=== PATIENT | male | born 1955 | race Hispanic/Latino ===

== ENCOUNTER 2019-05-07 09:17 | Day surgery (SDC) | payer OTHER ==
--- NOTE | 2019-05-07 10:42 | Anesthesia Consultation ---
Anesthesia Consult and Med Hx Date of service: 05/07/19 - Airway Anesthetic Teeth Evaluation: Poor ROM Head & Neck: Adequate Mental/Hyoid Distance: Inadequate Mallampati Class: Class I Intubation Access Assessment: Possibly Difficult - Pulmonary Exam CTA: Yes - Cardiac Exam Cardiac Exam: RRR - Pre-Operative Health Status ASA Pre-Surgery Classification: ASA4 Proposed Anesthetic Plan: MAC - Pulmonary Hx Smoking: No Hx Respiratory Symptoms: No Hx Sleep Apnea: Yes (compliant with CPAP) - Cardiovascular System Hx Hypertension: Yes Hx Heart Attack/AMI: Yes (2016; medical management only) Hx Angina: No Hx Percutaneous Transluminal Coronary Angioplasty (PTCA): No - Central Nervous System CVA: Yes (2016) - Gastrointestinal Hx Gastroesophageal Reflux Disease: No - Endocrine Hx End Stage Renal Disease: Yes (last HD 05/04/19) Hx Liver Disease: No Hx Insulin Dependent Diabetes: Yes - Other Systems Hx Obesity: Yes - Additional Comments Anesthesia Medical History Comments: Last dose ASA 3 days ago; last dose plavix 1 day ago.
--- NOTE | 2019-05-07 10:42 | Anesthesia Day of Surgery ---
Anesthesia Day of Surgery - Day of Surgery Patient Examined: Yes Patient H&P Reviewed: Yes Patient is NPO: Yes
[2019-05-07] MEDS ORDERED: PROPOFOL 200 MG/20 ML VIAL IV ONE ×2 (10:54)
[2019-05-07] MEDS ORDERED: LIDOCAINE MPF (2%) 20 MG/1 ML VIAL 5 ML ONE (11:00)
[2019-05-07] MEDS ORDERED: WATER FOR IRRIG STERILE 250 ML BOTTLE IR ONE (11:00)
[2019-05-07] MEDS ORDERED: SODIUM CHLORIDE 0.9% 1000 ML 1,000 ML IV SCH (11:00)
[2019-05-07] MEDS ORDERED: WATER FOR IRRIG STERILE 1,000 ML BOTTLE ONE (11:02)
--- NOTE | 2019-05-07 11:27 | Discharge Summary ---
Short Stay Discharge Plan Activity: advance as tolerated Weight Bearing Status: Weight Bear as Tolerated Diet: regular Follow up with: [facility] [Primary Care Provider] - 7 Days
--- NOTE | 2019-05-07 11:27 | Operative Report ---
Operative Report Operative Report: Date of procedure: 05/07/2019 Procedure: Colonoscopy with Snare polypectomy and submucosal injection. Attending physician: Dean Emerson M.D. Wind Project Manager: Dean Emerson M.D. Indication: Patient is a 63-year-old male who presents for screening colonoscopy. He has a past history of colon polyps. This colonoscopy serves to evaluate patient so that treatment may be directed based on the findings. Consent: Informed consent was obtained after advising the patient and family regarding nature of this procedure, its indications, potential benefits as well as possible complications including but not limited to bleeding perforation and adverse reaction to medication, infection as well as other cardiopulmonary complications. An informed written and verbal consent was then obtained after due opportunity was provided for questions and answers. Monitoring: Patient was monitored continuously with pulse oximetry and electrocardiographic recordings as well as blood pressure recordings. Vital signs remained stable throughout this procedure with no untoward events. Preoperative assessment: Patient was assessed immediately prior to this procedure for capacity to tolerate monitored anesthesia care and moderate sedation as well as general anesthesia. Patient's ASA classification is 3, Mallampati class is 2, Hyomental distance is 3. Instrument: Olympus video colonoscope. Medications: Propofol given intravenously in divided doses. For details please refer to anesthesia records. Description of procedure: Patient was placed in the left lateral decubitus position after achieving sedation, a digital rectal examination was performed following which the colonoscope was introduced into the anal verge and advanced to the ileocecal valve. There was substantial retained stool seen in the cecum and the surrounding area of the ileocecal valve therefore the cecum was not intubated.. The colonoscope was subsequently withdrawn with careful inspection of all mucosal surfaces. Patient tolerated this procedure well and was subsequently taken to the recovery room. The following findings were noted. Findings: The preparation was poor. The patient had substantial retained stool in sections of the colon. The colon was tortuous. There were no polyps seen in the colon. In the rectum however patient had a 1 cm sessile polyp which was elevated with submucosal injection of saline and removed by snare electrocautery and retrieved. Patient also had internal hemorrhoids seen on a retroflexed view at the anal verge. Impression: Rectal polyp status post submucosal injection and snare polypectomy and retrieval of polyp Substantial retained stool would poor colonoscopic preparation Substantial retained stool in the cecum and in the ileocecal valve area with poor visualization of this area. Internal hemorrhoids Plan: Follow pathology report. High-fiber diet. Repeat colonoscopy in 6-12 months.
[2019-05-07 12:00] VITALS: BP 119/74
--- NOTE | 2019-05-07 15:13 | Post Anesthesia Evaluation ---
- Post Anesthesia Evaluation Patient Participated: Yes Airway Patent: Yes Stable Respiratory Function: Yes Nausea/Vomiting: No Temp > 96.8F: Yes Pain Manageable: Yes Adequeate Hydration: Yes Anesthesia Complications: No Block Receding Appropriately: Not Applicable Patient on Ventilator: No
== END 2019-05-07 12:12 | disposition home or self-care (01) ==
LOC: GIO 09:17
PROVIDERS: ATTEND Internal Medicine Gastroenterology
DX: Z12.11 Encounter for screening for malignant neoplasm of colon (principal); D12.8 Benign neoplasm of rectum; K64.8 Other hemorrhoids; I12.0 Hypertensive chronic kidney disease with stage 5 chronic kidney disease or end stage renal disease; E11.22 Type 2 diabetes mellitus with diabetic chronic kidney disease; N18.6 End stage renal disease; I25.2 Old myocardial infarction; G47.30 Sleep apnea, unspecified; E66.9 Obesity, unspecified; Z99.2 Dependence on renal dialysis; Z86.73 Personal history of transient ischemic attack (TIA), and cerebral infarction without residual deficits; Z79.899 Other long term (current) drug therapy; Z68.34 Body mass index [BMI] 34.0-34.9, adult
CPT/HCPCS: 45381; 45385; 82803; 82962; 88305; J2704

== ENCOUNTER 2019-07-28 12:33 | Outpatient (CLI) | payer OTHER ==
--- NOTE | 2019-07-28 13:54 | Cat Scan Report ---
CT ABDOMEN AND PELVIS WITHOUT CONTRAST HISTORY: PRE TRANSPLANT/OTHER SPECIFIED SPECIAL EXAM COMPARISON: None. TECHNIQUE: Axial CT images were obtained through the abdomen and pelvis without IV contrast. Sagittal and coronal reformatted images. All CT scans at this location are performed using CT dose reduction for ALARA by means of automated exposure control. FINDINGS: CT ABDOMEN: Lung Bases: Borderline heart size. Mild to moderate coronary artery calcifications. An approximate 11 .3 x 7.1 cm low density cystic lesion is identified extending from the right heart border to the post erior mediastinum which presumably represents a pericardial cyst. Liver: No significant abnormality. Biliary: Gallbladder is contracted or has been surgically removed. No biliary dilatation. Spleen: No significant abnormality. Unenlarged. Pancreas: No significant abnormality. Adrenals: No significant abnormality. Kidneys: The kidneys are mildly atrophic. No focal lesion, nephrolithiasis or hydronephrosis is ident ified. Lymphatics: No lymphadenopathy. Vasculature: No significant abnormality. Bowel/Peritoneum: No significant abnormality. No free air. No free fluid. Normal appendix. CT PELVIS: : The bladder is partially empty but unremarkable. The prostate gland is normal size. Osseous Structures: Mild thoracolumbar spondylosis. Chronic L5 pars defects. Additional Findings: None IMPRESSION: Borderline heart size. Pericardial cyst is suspected as described. Mild renal atrophy. Contracted gallbladder versus cholecystectomy. No acute process is identified in the abdomen or pelvis. Signer Name: Raymond Sandoval Jr, MD Signed: 07/28/2019 1:49 PM Workstation Name: [id number]
== END 2019-07-28 12:34 | disposition home or self-care (01) ==
LOC: CT 12:33
PROVIDERS: ATTEND General Practice
DX: Z20.89 Contact with and (suspected) exposure to other communicable diseases (principal); I25.10 Atherosclerotic heart disease of native coronary artery without angina pectoris; I31.8 Other specified diseases of pericardium; N26.1 Atrophy of kidney (terminal); Z90.49 Acquired absence of other specified parts of digestive tract
CPT/HCPCS: 74176